=== PATIENT | male | born 1985 | race Caucasian/White ===

== ENCOUNTER 2016-09-30 17:45 | Emergency (ER) | payer SELFPAY ==
[~2016-09-30 17:45] MED LIST: Sodium Chloride Irrig Solution 250 ML BOT ONE
[2016-09-30] MEDS ORDERED: Lidocaine 1% w/Epinephrine 1:100K 20 ML VIAL ONE (18:34)
[2016-09-30] MEDS ORDERED: Cephalexin 500 MG CAP ONE (19:13)
[2016-09-30] MEDS ORDERED: Sulfameth/Trimethoprim DS 800-160mg TAB ONE (19:13)
--- NOTE | 2016-09-30 20:10 | RAD ---
EXAM: RIGHT KNEE FOUR VIEWS 09/30/16 HISTORY: Pain. COMPARISON: None. FINDINGS: Minimal suprapatellar joint effusion. There is prepatellar soft tissue swelling. No fracture. No mal alignment. Joint spaces are preserved. IMPRESSION: 1. No fracture. 2. Prepatellar soft tissue swelling, nonspecific. POS: [facility]
== END 2016-09-30 19:19 | disposition home or self-care (01) ==
LOC: MADERS 17:45
DX: L03.115 Cellulitis of right lower limb (principal); F17.220 Nicotine dependence, chewing tobacco, uncomplicated; F41.9 Anxiety disorder, unspecified; F31.9 Bipolar disorder, unspecified
CPT/HCPCS: 99283; J2001

== ENCOUNTER 2017-01-04 17:30 | Emergency (ER) | payer SELFPAY | END 2017-01-04 18:00 | disposition home or self-care (01) | LOC: MADERS 17:30 | DX: S01.511A Laceration without foreign body of lip, initial encounter (principal); L02.414 Cutaneous abscess of left upper limb; F31.9 Bipolar disorder, unspecified; F41.9 Anxiety disorder, unspecified; F17.210 Nicotine dependence, cigarettes, uncomplicated; F17.220 Nicotine dependence, chewing tobacco, uncomplicated; W61.92XA Struck by other birds, initial encounter | CPT/HCPCS: 12011 ==